=== PATIENT | male | born 1970 | race Caucasian/White ===

== ENCOUNTER 2016-08-12 09:06 | Day surgery (SDC) | payer OTHER ==
[~2016-08-12] VITALS: Ht 177.8 cm; Wt 90.7 kg
[~2016-08-12 09:06] MED LIST: PERCOCET 10/1 TABLET PO; PERCOCET 5/31 TABLET PO
[2016-08-12 09:38] VITALS: BP 129/86
[2016-08-12] MEDS ORDERED: COLACE100 MG PO (12:51)
[2016-08-12] MEDS ORDERED: PERCOCET 5/31 TABLET PO (12:51)
[2016-08-12 14:58] VITALS: BP 130/74
[2016-08-12 16:00] VITALS: BP 136/80
[2016-08-12 18:04] VITALS: BP 134/78
[2016-08-12 19:14] VITALS: BP 133/85
== END 2016-08-12 19:14 | disposition home or self-care (01) ==
LOC: SDC 09:06
PROC: 0FT44ZZ Resection of Gallbladder, Percutaneous Endoscopic Approach (ICD-10-PCS; principal; 2016-08-12)
DX: K80.12 Calculus of gallbladder with acute and chronic cholecystitis without obstruction (principal)
CPT/HCPCS: 88304; J0330; J1100; J1170; J1335; J1580; J2250; J2405; J2710; J3010; J7050

== ENCOUNTER 2017-04-11 20:55 | Emergency (ER) | payer OTHER ==
[~2017-04-11] VITALS: Ht 177.8 cm; Wt 96.4 kg
[~2017-04-11 20:55] MED LIST changes: +COLACE100 MG PO
[2017-04-11 21:22] LABS: HEMATOCRIT 41.5 % (38.0-50.0); MCH 29.3 PG (29.0-34.0); MCHC 34.7 G/DL (30.0-36.0); MCV 84.5 FL (86-99); MEAN PLAT.VOLUME 9.8 uM^3 (9.0-12.4); PLATELET COUNT 204 K/uL (156-360); RBC DIS.WIDTH-CV 12.1 % (11.8-14.6); RBC DIS.WIDTH-SD 36.8 % (39-53); RED BLOOD COUNT 4.91 M/uL (4.00-5.50); WHITE BLOOD COUNT 5.8 K/uL (4.1-10.2)
[2017-04-11 21:30] LABS: CHLORIDE 102 mEq/L (99-109); POTASSIUM 3.6 mEq/L (3.7-5.4); SODIUM 138 mEq/L (136-147)
[2017-04-11 21:33] LABS: GLUCOSE 92 mg/dL (70-99)
[2017-04-11 21:34] LABS: ANION GAP 12 MEQ/L (2-14)
[2017-04-11 21:35] LABS: TOTAL BILIRUBIN 0.5 mg/dL (0.0-1.0)
[2017-04-11 21:36] LABS: ALKALINE PHOSPHATASE 60 IU/L (3-129)
[2017-04-11 21:37] LABS: GFR ESTIMATE (CALCULATED) > 59 mL/min/
[2017-04-11 21:38] LABS: DIRECT BILIRUBIN 0.2 mg/dL (0.0-0.3); UREA NITROGEN (BUN) 19 mg/dL (9-23)
[2017-04-11 21:40] LABS: LIPASE 19 U/L (1.0-51.0)
[2017-04-11 21:43] LABS: TROP-I INTERPRETATION NEGATIVE; TROPONIN-I < 0.01 ng/mL (0.0-0.30)
[2017-04-12 00:01] LABS: TROP-I INTERPRETATION NEGATIVE; TROPONIN-I < 0.01 ng/mL (0.0-0.30)
[2017-04-12 00:40] VITALS: BP 120/71
== END 2017-04-12 00:40 | disposition home or self-care (01) ==
LOC: EME → EDBD 20:55 → EME 04-12 00:40
PROVIDERS: Emergency Medicine
DX: R07.9 Chest pain, unspecified (principal); Z88.0 Allergy status to penicillin
CPT/HCPCS: 71020; 80048; 80076; 83690; 84484; 85027; 93005; 99281; 99284

== ENCOUNTER 2017-07-21 21:50 | Emergency (ER) | payer OTHER ==
[~2017-07-21] VITALS: Ht 177.8 cm; Wt 92.7 kg
[2017-07-21 22:23] LABS: HEMATOCRIT 43.6 % (38.0-50.0); HEMOGLOBIN 15.2 G/DL (12.5-16.6); MCH 29.6 PG (29.0-34.0); MCHC 34.9 G/DL (30.0-36.0); MCV 84.8 FL (86-99); PLATELET COUNT 247 K/uL (156-360); RBC DIS.WIDTH-CV 12.6 % (11.8-14.6); RBC DIS.WIDTH-SD 38.7 % (39-53); RED BLOOD COUNT 5.14 M/uL (4.00-5.50); WHITE BLOOD COUNT 5.4 K/uL (4.1-10.2)
[2017-07-21 22:34] LABS: CHLORIDE 103 mEq/L (99-109); POTASSIUM 3.6 mEq/L (3.7-5.4); SODIUM 139 mEq/L (136-147)
[2017-07-21 22:35] LABS: GLUCOSE 105 mg/dL (70-99)
[2017-07-21 22:39] LABS: CREATININE 0.9 mg/dL (0.6-1.3); GFR ESTIMATE (CALCULATED) > 59 mL/min/ (58.99-99999)
[2017-07-21 22:40] LABS: UREA NITROGEN (BUN) 22 mg/dL (9-23)
[2017-07-21 22:44] LABS: TROP-I INTERPRETATION NEGATIVE; TROPONIN-I 0.02 ng/mL (0.0-0.30)
[2017-07-21 23:29] LABS: PTT 30.9 SEC (25-37)
[2017-07-22 01:46] LABS: TROP-I INTERPRETATION NEGATIVE; TROPONIN-I < 0.01 ng/mL (0.0-0.30)
[2017-07-22 02:58] VITALS: BP 111/68
== END 2017-07-22 03:00 | disposition home or self-care (01) ==
LOC: EME 21:50
PROVIDERS: Emergency Medicine
DX: R00.2 Palpitations (principal); I49.3 Ventricular premature depolarization; I51.7 Cardiomegaly; R94.31 Abnormal electrocardiogram [ECG] [EKG]; Z98.890 Other specified postprocedural states; Z86.79 Personal history of other diseases of the circulatory system; Z90.49 Acquired absence of other specified parts of digestive tract; Z88.0 Allergy status to penicillin
CPT/HCPCS: 71046; 71275; 80048; 84484; 85027; 85610; 85730; 93005; 99281; 99285; J7030